=== PATIENT | female | born 1960 | race Caucasian/White ===

== ENCOUNTER → 2018-06-08 | Outpatient (CLI) | payer BC ==
[2018-06-08 17:57] LABS: Basophils % (A) 0 %; Eosinophils # (A) 0.1 k/uL (0-0.7); Eosinophils % (A) 2 %; HCT 38.4 % (34.0-46.0); HGB 12.2 gm/dL (11.4-16.0); Lymphocytes # (A) 2.1 k/uL (1.0-4.8); Lymphocytes % (A) 26 %; MCHC 31.9 g/dL (31.0-37.0); MCV 90.9 fL (80.0-100.0); Mean Platelet Volume 7.4; Monocytes # (A) 0.4 k/uL (0-1.0); Monocytes % (A) 5 %; Neutrophils # (A) 5.3 k/uL (1.3-7.7); Neutrophils % (A) 65 %; Platelet Count 311 k/uL (150-450); RBC 4.22 m/uL (3.80-5.40); RDW 14.2 % (11.5-15.5); WBC 8.1 k/uL (3.8-10.6)
[2018-06-08 18:06] LABS: ALT 36 U/L (9-52); AST 23 U/L (14-36); Blood Urea Nitrogen 15 mg/dL (7-17)
[2018-06-08 18:47] LABS: Erythrocyte Sedimentation Rate 20 mm/hr (0-20)
== END | disposition home or self-care (01) ==
LOC: LABWHC1 17:26
PROVIDERS: ATTEND Internal Medicine Rheumatology
DX: M05.79 Rheumatoid arthritis with rheumatoid factor of multiple sites without organ or systems involvement (principal)
CPT/HCPCS: 36415; 82565; 84450; 84460; 84520; 85025; 85652